=== PATIENT | female | born 1950 | race Caucasian/White ===

== ENCOUNTER 2018-10-28 21:56 | Observation (INO) | payer SELFPAY ==
[2018-10-28 22:01] VITALS: BMI 27.1
--- NOTE | 2018-10-28 22:21 | PDOC ---
History of Present Illness - General Chief Complaint: Pain, Acute Stated Complaint: R/SIDE NUMBNESS TO FACE/NECK/SHOULDER Time Seen by Provider: 10/28/18 22:11 - History of Present Illness Initial Comments: 10/28/18 22:17 68 y/o F with PMH of HTN presents for evaluation of R sided neck pain and arm pain x 1 week and 1 day of facil numbness and subjective "drooping" x1 day which started today at 2:00 pm Past History - Past Medical History Allergies/Adverse Reactions: Allergies Allergy/AdvReac Type Severity Reaction Status Date / Time No Known Allergies Allergy Verified 10/28/18 22:00 COPD: No HTN: Yes Thyroid Disease: No - Suicide/Smoking/Psychosocial Hx Smoking History: Never smoked Hx Alcohol Use: No Substance Use Type: None Review of Systems - Review of Systems Musculoskeletal: Yes: Neck Pain Neurological: Yes: Tingling, Weakness. No: Headache, Pre-Existing Deficit, Unsteady Gait, Ataxia, Dizziness *Physical Exam - Vital Signs Last Vital Signs Temp Pulse Resp BP Pulse Ox 97.6 F 61 18 154/85 100 10/28/18 21:58 10/28/18 21:58 10/28/18 21:58 10/28/18 21:58 10/28/18 21:58 - Physical Exam General Appearance: Yes: Nourished, Appropriately Dressed. No: Apparent Distress HEENT: positive: EOMI, Normal ENT Inspection, Normal Voice, Symmetrical, TMs Normal, Pharynx Normal. negative: Tonsillar Exudate Neck: positive: Supple Respiratory/Chest: positive: Lungs Clear, Normal Breath Sounds. negative: Respiratory Distress, Rales, Rhonchi, Stridor, Wheezing Cardiovascular: positive: Regular Rate, S1, S2. negative: Murmur Musculoskeletal: positive: Normal Inspection Extremity: positive: Normal Inspection, Normal Range of Motion Integumentary: positive: Normal Color, Dry, Warm Neurologic: positive: cutter and presser II-XII NML intact, Fully Oriented, Alert, Motor Strength 5/5. negative: Sensory Deficit ED Treatment Course - RADIOLOGY Radiology Studies Ordered: Category Date Time Status HEAD CT WITHOUT CONTRAST [CT] Stat CT Scan 10/28/18 22:17 Ordered Medical Decision Making - Medical Decision Making 10/28/18 22:20 68 y/o pt with HTN and neurologic symptoms I will transfer to main ER *DC/Admit/Observation/Transfer Diagnosis at time of Disposition: Numbness and tingling of right face - Referrals Referrals: ON STAFF,NOT [Primary Care Provider] - - Patient Instructions - Post Discharge Activity
[2018-10-28 22:47] LABS: EOS % 1.8 % (0-4.5); HEMATOCRIT 36.8 % (32.4-45.2); HEMOGLOBIN 12.2 GM/dL (10.7-15.3); LYMPH % 41.1 % (8-40); MCH 30.5 pg (25.7-33.7); MCHC 33.1 g/dl (32.0-36.0); MEAN CELL VOLUME 91.9 fl (80-96); MONO % 6.2 % (3.8-10.2); NEUT % 49.9 % (42.8-82.8); PLATELET COUNT 283 K/MM3 (134-434); RDW 14.6 % (11.6-15.6); WHITE BLOOD COUNT 7.7 K/mm3 (4.0-10.0)
[2018-10-28 23:14] LABS: ALBUMIN 4.3 g/dl (3.4-5.0); BILIRUBIN,TOTAL 0.5 mg/dL (0.2-1); BLOOD UREA NITROGEN 19.1 mg/dL (7-18); CALCIUM 10.2 mg/dL (8.5-10.1); CREATININE 0.9 mg/dL (0.55-1.3); POTASSIUM 4.6 mmol/L (3.5-5.1); TOT PROT 7.1 g/dl (6.4-8.2)
--- NOTE | 2018-10-28 23:33 | PDOC ---
History of Present Illness - General Chief Complaint: Pain, Acute Stated Complaint: R/SIDE NUMBNESS TO FACE/NECK/SHOULDER Time Seen by Provider: 10/28/18 22:11 History Source: Patient, Family (daughter) - History of Present Illness Initial Comments: 10/28/18 23:27 68 y/o/f here for right shoulder/arm/neck pain x1 week and tingling and numbness of the right side of her face that started at 2pm today. Patient states she has had pain in her right shoulder and neck for the last week. Occasionally she has shooting pain down her arm. She denies any numbness or tingling in her arm. She states the pain is a 9/10 currently. She took aleve yesterday with temporary improvement in pain. Today at 2pm she started to feel like she had tingling and numbness on the right side of her face and felt like the right side of her face has been drooping. She no longer has numbness on her face but still feels that the right side of her face is drooping. Patient also complains of a sore throat and dry cough x3 days. She denies chest pain, SOB, headache, dizziness, fever, abd pain, or other symptoms. PMHx: HTN SHx: breast papilloma removal from right breast Social: denies alcohol and tobacco use PCP: Dr. Dia Past History - Past Medical History Allergies/Adverse Reactions: Allergies Allergy/AdvReac Type Severity Reaction Status Date / Time No Known Allergies Allergy Verified 10/28/18 22:00 Home Medications: Ambulatory Orders Carvedilol 0 mg PO BID 10/28/18 Hydrochlorothiazide [Hctz -] 0 mg PO DAILY 10/28/18 Losartan Potassium 0 mg PO DAILY 10/28/18 COPD: No HTN: Yes Thyroid Disease: No - Suicide/Smoking/Psychosocial Hx Smoking History: Never smoked Hx Alcohol Use: No Substance Use Type: None Review of Systems - Review of Systems Able to Perform ROS?: Yes Is the patient limited Kyrgyz proficient: Yes Constitutional: No: Chills, Fever, Weakness HEENTM: No: Nose Congestion Respiratory: Yes: Cough. No: Shortness of Breath Cardiac (ROS): No: Chest Pain, Lightheadedness ABD/GI: No: Diarrhea, Nausea, Vomiting Musculoskeletal: Yes: Joint Pain (right shoulder) Integumentary: No: Rash Neurological: Yes: Numbness, Tingling. No: Headache Endocrine: No: Excessive Sweating *Physical Exam - Vital Signs Last Vital Signs Temp Pulse Resp BP Pulse Ox 97.6 F 61 18 154/85 100 10/28/18 21:58 10/28/18 21:58 10/28/18 21:58 10/28/18 21:58 10/28/18 21:58 - Physical Exam General Appearance: Yes: Nourished HEENT: positive: EOMI, SAMANTHA, Normal Voice, Symmetrical Neck: positive: Trachea midline, Supple Respiratory/Chest: positive: Lungs Clear, Normal Breath Sounds. negative: Accessory Muscle Use Cardiovascular: positive: Regular Rhythm, Regular Rate, S1, S2 Gastrointestinal/Abdominal: positive: Normal Bowel Sounds, Soft Musculoskeletal: positive: Other (tenderness to palpation over right acromial process. Full passive ROM of right arm and shoulder. ) Extremity: positive: Normal Capillary Refill. negative: Coldness, Swelling Integumentary: positive: Normal Color Neurologic: positive: Fully Oriented, Alert, Normal Response, Motor Strength 5/5 , Facial Droop (right sided facial droop, patient unable to fully raise right eyebrow on exam ), Finger to Nose, Other (no sensory deficits). negative: Confused ED Treatment Course - LABORATORY CBC & Chemistry Diagram: 10/28/18 22:38 10/28/18 22:38 - ADDITIONAL ORDERS Additional order review: Laboratory Results 10/28/18 10/28/18 22:38 22:38 Sodium 140 Potassium 4.6 Chloride 107 Carbon Dioxide 30 Anion Gap 3 L BUN 19.1 H Creatinine 0.9 Est GFR (CKD-EPI)AfAm 75.61 Est GFR (CKD-EPI)NonAf 65.24 Random Glucose 92 Calcium 10.2 H Total Bilirubin 0.5 AST 34 ALT 24 Alkaline Phosphatase 118 H Creatine Kinase 95 Troponin I < 0.02 Total Protein 7.1 Albumin 4.3 10/28/18 22:38 RBC 4.00 MCV 91.9 MCHC 33.1 RDW 14.6 MPV 9.0 Neutrophils % 49.9 Lymphocytes % 41.1 H Monocytes % 6.2 Eosinophils % 1.8 Basophils % 1.0 - RADIOLOGY Radiology Studies Ordered: Category Date Time Status CHEST PA & LAT [RAD] Stat Radiology 10/28/18 23:19 Ordered Medical Decision Making - Medical Decision Making 10/28/18 23:40 -68 y/o/f here for right shoulder/arm/neck pain x1 week and tingling and numbness of the right side of her face that started at 2pm today. -Patient states her facial numbness and droop have improved. -On exam patient has normal sensation, 5/5 strength upper and lower extremities. Normal Cranial never 2-4, 6-12. Patient unable to fully raise right eyebrow. -CBC, CMP grossly normal. -CT head negative for acute pathology. -Pending EKG and CXR. -Will likely admit patient for TIA/Stroke workup 10/28/18 23:42 -EKG reviewed - sinus bradycardia at 57bpm. no acute ischemic changes. 10/29/18 01:08 -Patient admitted under Dr. Brown to telemetry. *DC/Admit/Observation/Transfer Diagnosis at time of Disposition: Numbness and tingling of right face - Discharge Dispostion Condition at time of disposition: Stable - Referrals Referrals: ON STAFF,NOT [Primary Care Provider] - - Patient Instructions - Post Discharge Activity
--- NOTE | 2018-10-29 01:22 | PDOC ---
Attending Attestation - Resident Resident Name: CristinasaydaRuslan dunn S - ED Attending Attestation I have performed the following: I have examined & evaluated the patient, The case was reviewed & discussed with the resident, I agree w/resident's findings & plan - HPI HPI: 10/29/18 01:20 see resident hpi - Physicial Exam PE: 10/29/18 01:20 agree with resident exam - Medical Decision Making 10/29/18 01:21 68-year-old female with right neck and upper back pain now with right-sided facial numbness and tingling CT scan of the brain shows no acute abnormality Due to patient's age she will be admitted to medical service for further evaluation
[2018-10-29] MEDS ORDERED: ASPIRIN 81 MG CHEWABLE TABLETS PO ONE (02:16)
[2018-10-29] MEDS ORDERED: ASPIRIN 81 MG CHEWABLE TABLETS ONE (02:27)
--- NOTE | 2018-10-29 02:54 | HP ---
CHIEF COMPLAINT: R sided arm pain and R facial numbness and droop PCP: Dr. Dia HISTORY OF PRESENT ILLNESS: Ratna Benitez is a 68 year old female with a past medical history of hypertension who presents with a 1 week history of R sided arm pain and 1 day history of facial numbness and facial droop. The patient stated that the R arm pain feels very sharp and comes on suddenly if she moves her arm, shoulder or neck. She feels the pain is worse when she flexes her neck. She denies any weakness associated with the pain or numbness. The facial numbness and droop started around 2PM on 10/29. Her son who lives with her stated to the daughter who was at bedside that he thought the patient's voice sounded unlike her usual voice and thought she was slurring her words. The patient was unsure if she was slurring her words but denied dysphagia, facial weakness. Stated that she also had brief episodes of blurriness in her vision. No darkening of the vision, syncope, dizziness, focal weakness of the extremities, numbness or tingling of the extremities, falls. Also denies chest pain, shortness of breath, nausea, vomiting, abdominal pain, dysuria, frequency, urgency, hesitancy. Denies recent trauma, recent illness, falls, sick contacts. At the time of interview, the patient stated she felt better and noted that the facial numbness had resolved but felt that she had some residual facial droop. Stated she had a sore throat for several days with a dry cough. No phlegm, no fever, chills, or shortness of breath. ER course was notable for: (1) Head CT with no acute pathology, CXR with no acute pathology (2) Given aspirin 162 Recent Travel: denies PAST MEDICAL HISTORY: as above PAST SURGICAL HISTORY: hip and knee surgery Social History: Smoking: denies Alcohol: denies Drugs: denies Lives with son. Family History: Mother- stroke Allergies No Known Allergies Allergy (Verified 10/28/18 22:00) HOME MEDICATIONS: Home Medications Medication Instructions Recorded Carvedilol 0 mg PO BID 10/28/18 Hydrochlorothiazide [Hctz -] 0 mg PO DAILY 10/28/18 Losartan Potassium 0 mg PO DAILY 10/28/18 REVIEW OF SYSTEMS CONSTITUTIONAL: Absent: fever, chills, diaphoresis, generalized weakness, malaise, loss of appetite HEENT: sore throat, blurry vision (resolved) Absent: rhinorrhea, nasal congestion, throat swelling, difficulty swallowing, eye pain, CARDIOVASCULAR: Absent: chest pain, syncope, palpitations, irregular heart rate, lightheadedness , peripheral edema RESPIRATORY: dry cough Absent: shortness of breath, dyspnea with exertion, orthopnea, wheezing, GASTROINTESTINAL: Absent: abdominal pain, abdominal distension, nausea, vomiting, diarrhea, constipation, GENITOURINARY: Absent: dysuria, frequency, urgency, hesitancy, hematuria, flank pain MUSCULOSKELETAL: neck pain, R arm pain Absent: myalgia, arthralgia, joint swelling, back pain SKIN: Absent: rash, itching, pallor HEMATOLOGIC/IMMUNOLOGIC: Absent: easy bleeding, easy bruising, lymphadenopathy, frequent infections ENDOCRINE: Absent: unexplained weight gain, unexplained weight loss, heat intolerance, cold intolerance NEUROLOGIC: R facial numbess, R facial droop Absent: headache, dizziness, unsteady gait, seizure, mental status changes, bladder or bowel incontinence PSYCHIATRIC: Absent: anxiety, depression, suicidal or homicidal ideation, hallucinations. PHYSICAL EXAMINATION Vital Signs - 24 hr 10/28/18 21:58 Temperature 97.6 F Pulse Rate 61 Respiratory 18 Rate Blood Pressure 154/85 O2 Sat by Pulse 100 Oximetry (%) GENERAL: Awake, alert, and fully oriented, in no acute distress. HEAD: Normal with no signs of trauma. EYES: Pupils equal, round and reactive to light, extraocular movements intact, sclera anicteric, conjunctiva clear. EARS, NOSE, THROAT: Oropharynx clear without exudates. Moist mucous membranes. NECK: Supple without lymphadenopathy, JVD. Pain with passive flexion of the neck and upon palpation of the neck between C4-C6 region. LUNGS: Breath sounds equal, clear to auscultation bilaterally. No wheezes, and no crackles. No accessory muscle use. HEART: Regular rate and rhythm, normal S1 and S2 without murmur, rub. ABDOMEN: Soft, nontender, not distended, normoactive bowel sounds, no guarding, no rebound, no masses. MUSCULOSKELETAL: Normal range of motion at all joints. No bony deformities or tenderness. No CVA tenderness. UPPER EXTREMITIES: 2+ pulses, warm, well-perfused. No cyanosis. No clubbing. No peripheral edema. LOWER EXTREMITIES: 2+ pulses, warm, well-perfused. No calf tenderness. No peripheral edema. NEUROLOGICAL: Mild facial droop noted with smile asymmetry. R eyebrow lower than L but adequately raises. Adequate eye closing strength. Otherwise CN II- XII intact. 5/5 muscle strength bilaterally upper and lower extremities. Sensation intact to gross touch throughout face, upper and lower extremities. Finger to nose intact, heel to sharp intact. No extinction. NIH 1 (minor facial paralysis) PSYCHIATRIC: Cooperative. Good eye contact. Appropriate mood and affect. SKIN: Warm, dry, normal turgor, no rashes or lesions noted, normal capillary refill. Laboratory Results - last 24 hr 10/28/18 10/28/18 10/28/18 22:38 22:38 22:38 WBC 7.7 RBC 4.00 Hgb 12.2 Hct 36.8 MCV 91.9 MCH 30.5 MCHC 33.1 RDW 14.6 Plt Count 283 MPV 9.0 Absolute Neuts (auto) 3.9 Neutrophils % 49.9 Lymphocytes % 41.1 H Monocytes % 6.2 Eosinophils % 1.8 Basophils % 1.0 Nucleated RBC % 0 Sodium 140 Potassium 4.6 Chloride 107 Carbon Dioxide 30 Anion Gap 3 L BUN 19.1 H Creatinine 0.9 Est GFR (CKD-EPI)AfAm 75.61 Est GFR (CKD-EPI)NonAf 65.24 Random Glucose 92 Calcium 10.2 H Total Bilirubin 0.5 AST 34 ALT 24 Alkaline Phosphatase 118 H Creatine Kinase 95 Troponin I < 0.02 Total Protein 7.1 Albumin 4.3 EKG--> Sinus bradycardia, q waves and T wave inversions in I and aVL, positive waves in aVR, no ST segment changes, questionable for lead reversal, will repeat EKG ASSESSMENT/PLAN: Ratna Benitez is a 68 year old female with a past medical history of hypertension who is admitted for TIA/CVA workup after presenting with R facial droop and R facial numbness R facial numbness/droop R sided arm pain HTN R facial numbness/droop - cannot rule out TIA/CVA as patient with risk factors of HTN and family history and acute onset focal symptoms admitted for rule out - has some upper facial assymetry which family states is not usual, can consider Thurston's palsy, unknown cause - CT as above - given aspirin 162 in ED - neurology consulted - echo - carotids - lipid panel - A1C - repeat labs - consider statin dose elevation if higher suspicion for CVA - MRI/MRA can be considered however patient noted she had metal implants in her legs, may be deferred, or CTA can be performed - fall precautions - cardiac monitoring - physical therapy - speech and swallow consult - Lyme panel to evaluate for questionable Thurston's palsy R sided arm pain - localized pain from neck down isolated to the C5/C6 dermatomes, can consider disc herniations - MRI C-spine would be of utility, however patient stated she has metal implant in leg - monitor pain and treat as necessary - physical therapy requested - C- spine x-ray to evaluate for bony disease HTN - continue home meds - medications obtained through identification of pills that patient had with them, needs medication reconciliation through pharmacy FEN - no standing fluids - continue to monitor electrolytes and replete as necessary - sodium controlled diet Prophylaxis - heparin 5000 units subq tid Code - full code LAYNE PADGETT DO - PGY-1 Visit type - Emergency Visit Emergency Visit: Yes ED Registration Date: 10/29/18 Care time: The patient presented to the Emergency Department on the above date and was hospitalized for further evaluation of their emergent condition. - New Patient This patient is new to me today: Yes Date on this admission: 10/29/18 - Critical Care Critical Care patient: No
[2018-10-29] MEDS ORDERED: CARVEDILOL 12.5 MG TABLET (FP) PO ONE (02:58)
[2018-10-29] MEDS ORDERED: CARVEDILOL 12.5 MG TABLET (FP) ONE (03:29)
[2018-10-29] MEDS ORDERED: HEPARIN NA (PORCINE) 5,000 UNITS/ML 1ML VIAL ONE ×2 (06:17→14:56)
[2018-10-29] MEDS: HEPARIN NA (PORCINE) 5,000 UNITS/ML 1ML VIAL SQ SCH ×2 (06:30→15:10)
--- NOTE | 2018-10-29 07:06 | PN ---
Teaching Attending Note Name of Resident: Heriberto Neves ATTENDING PHYSICIAN STATEMENT I saw and evaluated the patient. I reviewed the resident's note and discussed the case with the resident. I agree with the resident's findings and plan as documented. SUBJECTIVE: 68 year old female with htn c/o right facial numbness which started in evening on 10/28. Started spontaneously, no headaches, vertigo, nausea, vision or hearing changes. No problems with gait, speech, or swallowing. also mentioned one week of posterior neck and right upper extremity radiation. OBJECTIVE: Last Vital Signs Temp Pulse Resp BP Pulse Ox 97.6 F 57 L 18 143/79 100 10/28/18 23:20 10/28/18 23:20 10/28/18 23:20 10/28/18 23:20 10/28/18 23:20 General- nad heent - possible slight right lower facial droop neck supple cv-s1+s2+rrr neuro - CN 3-12 wnl, limbs motor intact Abnormal Lab Results 10/28/18 10/28/18 22:38 22:38 Lymphocytes % 41.1 H Anion Gap 3 L BUN 19.1 H Calcium 10.2 H Alkaline Phosphatase 118 H Imaging reviewed - head CT wnl ASSESSMENT AND PLAN: #TIA/ r/o CVA vs possible [place] Palsy. Do not strongly suspect CVA. Right upper extremity pain might be from cervical radiculopathy, possible cervical diskopathy. -tele/obs -npo -neuro consult -statin -asa -neck lateral x-ray -bed rest -neuro checks q4hrs -echo -carotid duplex -a1c -lipid panel -consider MRI -heparin sc
[2018-10-29 08:02] LABS: BASO % 0.7 % (0-2.0); EOS % 1.7 % (0-4.5); HEMATOCRIT 37.3 % (32.4-45.2); HEMOGLOBIN 12.5 GM/dL (10.7-15.3); MCH 30.7 pg (25.7-33.7); MCHC 33.3 g/dl (32.0-36.0); MEAN CELL VOLUME 91.9 fl (80-96); MEAN PLT VOLUME 8.3 fl (7.5-11.1); MONO % 5.8 % (3.8-10.2); NEUT % 52.8 % (42.8-82.8); PLATELET COUNT 249 K/MM3 (134-434); RBC 4.06 M/mm3 (3.60-5.2); RDW 14.6 % (11.6-15.6)
[2018-10-29 08:34] LABS: ALBUMIN 4.2 g/dl (3.4-5.0); BILIRUBIN,TOTAL 0.6 mg/dL (0.2-1); BLOOD UREA NITROGEN 17.4 mg/dL (7-18); CALCIUM 10.1 mg/dL (8.5-10.1); CREATININE 0.7 mg/dL (0.55-1.3); MAGNESIUM 2.3 mg/dL (1.8-2.4); POTASSIUM 3.8 mmol/L (3.5-5.1)
--- NOTE | 2018-10-29 08:49 | CONSULT ---
Consult - text type - Consultation Consultation Note: Neurology CHIEF COMPLAINT: R sided arm pain and R facial numbness and droop PCP: Dr. Dia HISTORY OF PRESENT ILLNESS: Ratna Benitez is a 68 year old female with a past medical history of hypertension who presents with a 1 week history of R sided arm pain and 1 day history of facial numbness and facial droop. The patient stated that the R arm pain feels very sharp and comes on suddenly if she moves her arm, shoulder or neck. She feels the pain is worse when she flexes her neck. She denies any weakness associated with the pain or numbness. The facial numbness and droop started around 2PM on 10/29. Her son who lives with her stated to the daughter who was at bedside that he thought the patient's voice sounded unlike her usual voice and thought she was slurring her words. The patient was unsure if she was slurring her words but denied dysphagia, facial weakness. Stated that she also had brief episodes of blurriness in her vision. No darkening of the vision, syncope, dizziness, focal weakness of the extremities, numbness or tingling of the extremities, falls. Also denies chest pain, shortness of breath, nausea, vomiting, abdominal pain, dysuria, frequency, urgency, hesitancy. Denies recent trauma, recent illness, falls, sick contacts. At the time of interview, the patient stated she felt better and noted that the facial numbness had resolved but felt that she had some residual facial droop. Stated she had a sore throat for several days with a dry cough. No phlegm, no fever, chills, or shortness of breath. Head CT completed, no acute pathology. Carotid Doppler ordered. discussed with ER overnight, recommended MRI brain, however, I informed that patient has met all and therefore will not be able to have MRI. We'll order CT head to be repeated. patient remains in the ER with her daughter at bedside, does report some improvement but with continued facial droop. 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 Cannot rule out TIA. Patient does report taking daily aspirin along with statin. Recent Travel: denies PAST MEDICAL HISTORY: as above PAST SURGICAL HISTORY: hip and knee surgery Social History: Smoking: denies Alcohol: denies Drugs: denies Lives with son. Family History: Mother- stroke Allergies No Known Allergies Allergy (Verified 10/28/18 22:00) HOME MEDICATIONS: Home Medications Medication Instructions Recorded Carvedilol 0 mg PO BID 10/28/18 Hydrochlorothiazide [Hctz -] 0 mg PO DAILY 10/28/18 Losartan Potassium 0 mg PO DAILY 10/28/18 REVIEW OF SYSTEMS CONSTITUTIONAL: Absent: fever, chills, diaphoresis, generalized weakness, malaise, loss of appetite HEENT: sore throat, blurry vision (resolved) Absent: rhinorrhea, nasal congestion, throat swelling, difficulty swallowing, eye pain, CARDIOVASCULAR: Absent: chest pain, syncope, palpitations, irregular heart rate, lightheadedness , peripheral edema RESPIRATORY: dry cough Absent: shortness of breath, dyspnea with exertion, orthopnea, wheezing, GASTROINTESTINAL: Absent: abdominal pain, abdominal distension, nausea, vomiting, diarrhea, constipation, GENITOURINARY: Absent: dysuria, frequency, urgency, hesitancy, hematuria, flank pain MUSCULOSKELETAL: neck pain, R arm pain Absent: myalgia, arthralgia, joint swelling, back pain SKIN: Absent: rash, itching, pallor HEMATOLOGIC/IMMUNOLOGIC: Absent: easy bleeding, easy bruising, lymphadenopathy, frequent infections ENDOCRINE: Absent: unexplained weight gain, unexplained weight loss, heat intolerance, cold intolerance NEUROLOGIC: R facial numbess, R facial droop Absent: headache, dizziness, unsteady gait, seizure, mental status changes, bladder or bowel incontinence PSYCHIATRIC: Absent: anxiety, depression, suicidal or homicidal ideation, hallucinations. PHYSICAL EXAMINATION Vital Signs Period Temp Pulse Resp BP Sys/Rodriguez Pulse Ox Last 24 Hr 97.6 F-97.6 F 57-61 18-18 143-154/79-85 100-100 GENERAL: Awake, alert, and fully oriented, in no acute distress. HEAD: Normal with no signs of trauma. EYES: Pupils equal, round and reactive to light, extraocular movements intact, sclera anicteric, conjunctiva clear. EARS, NOSE, THROAT: Oropharynx clear without exudates. Moist mucous membranes. NECK: Supple without lymphadenopathy, JVD. Pain with passive flexion of the neck and upon palpation of the neck between C4-C6 region. LUNGS: Breath sounds equal, clear to auscultation bilaterally. No wheezes, and no crackles. No accessory muscle use. HEART: Regular rate and rhythm, normal S1 and S2 without murmur, rub. ABDOMEN: Soft, nontender, not distended, normoactive bowel sounds, no guarding, no rebound, no masses. MUSCULOSKELETAL: Normal range of motion at all joints. No bony deformities or tenderness. No CVA tenderness. UPPER EXTREMITIES: 2+ pulses, warm, well-perfused. No cyanosis. No clubbing. No peripheral edema. LOWER EXTREMITIES: 2+ pulses, warm, well-perfused. No calf tenderness. No peripheral edema. NEUROLOGICAL: Mild facial droop noted with smile asymmetry. R eyebrow lower than L but adequately raises. Adequate eye closing strength. Otherwise CN II- XII intact. 5/5 muscle strength bilaterally upper and lower extremities. Sensation intact to gross touch throughout face, upper and lower extremities. Finger to nose intact, heel to sharp intact. No extinction. NIH 1 (minor facial paralysis) PSYCHIATRIC: Cooperative. Good eye contact. Appropriate mood and affect. SKIN: Warm, dry, normal turgor, no rashes or lesions noted, normal capillary refill. CBCD WBC 6.0 K/mm3 (4.0-10.0) 10/29/18 07:08 RBC 4.06 M/mm3 (3.60-5.2) 10/29/18 07:08 Hgb 12.5 GM/dL (10.7-15.3) 10/29/18 07:08 Hct 37.3 % (32.4-45.2) 10/29/18 07:08 MCV 91.9 fl (80-96) 10/29/18 07:08 MCHC 33.3 g/dl (32.0-36.0) 10/29/18 07:08 RDW 14.6 % (11.6-15.6) 10/29/18 07:08 Plt Count 249 K/MM3 (134-434) 10/29/18 07:08 MPV 8.3 fl (7.5-11.1) 10/29/18 07:08 CMP Sodium 142 mmol/L (136-145) 10/29/18 07:08 Potassium 3.8 mmol/L (3.5-5.1) 10/29/18 07:08 Chloride 108 mmol/L (98-107) H 10/29/18 07:08 Carbon Dioxide 28 mmol/L (21-32) 10/29/18 07:08 Anion Gap 6 MMOL/L (8-16) L 10/29/18 07:08 BUN 17.4 mg/dL (7-18) 10/29/18 07:08 Creatinine 0.7 mg/dL (0.55-1.3) 10/29/18 07:08 Random Glucose 89 mg/dL (74-106) 10/29/18 07:08 Calcium 10.1 mg/dL (8.5-10.1) 10/29/18 07:08 Total Bilirubin 0.6 mg/dL (0.2-1) 10/29/18 07:08 AST 18 U/L (15-37) 10/29/18 07:08 ALT 22 U/L (13-61) 10/29/18 07:08 Alkaline Phosphatase 111 U/L (45-117) 10/29/18 07:08 Total Protein 7.0 g/dl (6.4-8.2) 10/29/18 07:08 Albumin 4.2 g/dl (3.4-5.0) 10/29/18 07:08 CARDIAC ENZYMES Creatine Kinase 95 U/L (26-192) 10/28/18 22:38 Troponin I < 0.02 ng/ml (0.00-0.05) 10/28/18 22:38 EKG--> Sinus bradycardia, q waves and T wave inversions in I and aVL, positive waves in aVR, no ST segment changes, questionable for lead reversal, will repeat EKG ASSESSMENT/PLAN: Ratna Benitez is a 68 year old female with a past medical history of hypertension who presents with a 1 week history of R sided arm pain and 1 day history of facial numbness and facial droop. The patient stated that the R arm pain feels very sharp and comes on suddenly if she moves her arm, shoulder or neck. She feels the pain is worse when she flexes her neck. She denies any weakness associated with the pain or numbness. The facial numbness and droop started around 2PM on 10/29. Her son who lives with her stated to the daughter who was at bedside that he thought the patient's voice sounded unlike her usual voice and thought she was slurring her words. The patient was unsure if she was slurring her words but denied dysphagia, facial weakness. Stated that she also had brief episodes of blurriness in her vision. discussed with ER overnight, recommended MRI brain, however, I informed that patient has met all and therefore will not be able to have MRI. We'll order CT head to be repeated. patient remains in the ER with her daughter at bedside, does report some improvement but with continued facial droop. 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 Cannot rule out TIA. Patient does report taking daily aspirin along with statin. Follow follow-up carotid Dopplers, maintain blood pressure less than 160/90, continue antihypertensive medications, continue statin and aspirin 81 mg daily.
[2018-10-29] MEDS ORDERED: ASPIRIN COATED 81 MG TABLET.EC PO SCH (10:00)
[2018-10-29] MEDS ORDERED: LOSARTAN POTASSIUM 50 MG TABLET (FP) PO SCH (10:00)
[2018-10-29] MEDS ORDERED: CARVEDILOL 12.5 MG TABLET (FP) PO SCH (10:00)
[2018-10-29] MEDS ORDERED: HYDROCHLOROTHIAZIDE 12.5 MG CAPSULE (FP) PO SCH (10:00)
--- NOTE | 2018-10-29 10:37 | EKG ---
Test Reason : Blood Pressure : / mmHG Vent. Rate : 052 BPM Atrial Rate : 052 BPM P-R Int : 176 ms QRS Dur : 074 ms QT Int : 424 ms P-R-T Axes : 042 020 027 degrees QTc Int : 394 ms SINUS BRADYCARDIA OTHERWISE NORMAL ECG WHEN COMPARED WITH ECG OF 28-OCT-2018 23:39, QRS AXIS SHIFTED LEFT CRITERIA FOR LATERAL INFARCT ARE NO LONGER PRESENT CRITERIA FOR INFERIOR INFARCT ARE NO LONGER PRESENT NON-SPECIFIC CHANGE IN ST SEGMENT IN LATERAL LEADS T WAVE INVERSION NO LONGER EVIDENT IN LATERAL LEADS Confirmed by GARTH WYATT MD ([id number]) on 10/29/2018 10:37:32 AM Referred By: Confirmed By:GARTH WYATT MD
--- NOTE | 2018-10-29 10:38 | EKG ---
Test Reason : Blood Pressure : / mmHG Vent. Rate : 057 BPM Atrial Rate : 057 BPM P-R Int : 154 ms QRS Dur : 082 ms QT Int : 408 ms P-R-T Axes : 000 136 149 degrees QTc Int : 397 ms LIMB LEAD REVERSAL SINUS BRADYCARDIA LATERAL INFARCT , AGE UNDETERMINED INFERIOR INFARCT , AGE UNDETERMINED ABNORMAL ECG Confirmed by YOSELIN WALKER, GARTH ([id number]) on 10/29/2018 10:38:17 AM Referred By: Confirmed By:GARTH WYATT MD
--- NOTE | 2018-10-29 12:31 | ECHO ---
Name: NATY NICHOLS Exam:Adult Echocardiogram Study Date: 10/29/2018 09:24 AM Age: 68 yrs Reason For Study: EVALUATE HEART FUNCTION CVA/TIA Height: 62 in Weight: 148 lb BSA: 1.7 m2 MMode/2D Measurements & Calculations IVSd: 0.89 cm Ao root diam: 2.6 cm LVIDd: 4.3 cm LA dimension: 3.2 cm LVIDs: 3.0 cm LVPWd: 0.76 cm EDV(Teich): 82.3 ml LVOT diam: 1.9 cm ESV(Teich): 33.7 ml Doppler Measurements & Calculations MV E max pito: 67.1 cm/sec Ao V2 max: 157.5 cm/sec MV A max pito: 27.1 cm/sec Ao max P.9 mmHg MV E/A: 2.5 Ao V2 mean: 113.4 cm/sec MV dec time: 0.21 sec Ao mean P.8 mmHg Ao V2 VTI: 39.1 cm AI P1/2t: 878.0 msec PEDRO PABLO(V,D): 2.2 cm2 AI max pito: 250.3 cm/sec LV V1 max P.3 mmHg AI max P.9 mmHg LV V1 max: 115.5 cm/sec AI dec slope: 83.5 cm/sec2 MR max pito: 406.6 cm/sec TR max pito: 238.9 cm/sec MR max P.1 mmHg TR max P.0 mmHg Med Peak E' Pito: 6.5 cm/sec Med E/e': 10.4 Lat Peak E' Pito: 7.6 cm/sec Lat E/e': 8.8 Procedure A complete two-dimensional transthoracic echocardiogram was performed (2D, M-mode, Doppler and color flow Doppler). Left Ventricle The left ventricular size, thickness and function are normal. The left ventricular ejection fraction is normal. Ejection Fraction = 60-65%. The left ventricular wall motion is normal. Right Ventricle The right ventricle is normal in size and function. Atria Normal left and right atrial size and function. Mitral Valve There is no mitral regurgitation noted. Tricuspid Valve There is mild to moderate tricuspid regurgitation. Right ventricular systolic pressure is normal. Aortic Valve The aortic valve is trileaflet. No hemodynamically significant valvular aortic stenosis. Trace aortic regurgitation. Pulmonic Valve There is no pulmonic valvular regurgitation. Great Vessels The aortic root is normal size. Pericardium/Pleura There is no pericardial effusion. Interpretation Summary The left ventricular size, thickness and function are normal The right ventricle is normal in size and function. There is mild to moderate tricuspid regurgitation. Trace aortic regurgitation. MD Lawrence Loredo 10/29/2018 12:31 PM
--- NOTE | 2018-10-29 14:36 | CONSULT ---
Admitting History and Physical - Primary Care Physician PCP: Temo Troncoso - Admission History of Present Illness: Ratna Benitez is a 68 year old female with a past medical history of hypertension who is admitted for TIA/CVA workup after presenting with R facial droop and R facial numbness. Pt reported neck and shoulder pain week before onset of facial symptoms. Selected Entries 10/28/18 10/28/18 10/29/18 21:58 23:20 10:23 Temperature 97.6 F 97.6 F 97.5 F L Blood Pressure 154/85 Blood Pressure 143/79 138/72 [Left Arm] Laboratory Tests 10/28/18 10/29/18 22:38 07:08 WBC 7.7 6.0 History Source: Patient, Friend Limitations to Obtaining History: No Limitations - Smoking History Smoking history: Never smoked - Alcohol/Substance Use Hx Alcohol Use: No History - Admission Reason For Visit: TRANSIENT ISCHEMIC ATTACK - Diagnostics X-ray: Report Reviewed CT Scan: Report Reviewed - General Mental Status: Alert and Oriented, Awake and Alert, Able to Follow Commands Attention: Intact Ability to Follow Directions: Excellent Head/Neck Control: WFL - Hearing Hearing: Normal Speech Evaluation - Communication Primary Language: S[place]TH [place]OREAN Secondary Language: YI Communication: Yes: Within Normal Limits Oral Expression Ability: Yes: No Impairment - Speech Production Able to Make Needs Known: Yes: WNL Intelligibility: Yes: WNL - Speech Characteristics Voice Loudness: Normal Voice Phonatory-based Quality: Yes: Normal Speech Pattern: Normal Speech Clarity: < 100% Nasal Resonance: Normal Articulation: Yes: Precise Rate of Speech: Intact - Language/Auditory Comprehension Follows: Yes: 2 Stage Simple Commands Observation: Able to respond to yes/no queries: Yes, Yes/No Confusion: No, Comprehends Conversational Speech: Yes - Language/Verbal Expression Able to Respond to Simple Queries: Yes: WNL Able to Communicate Wants and Needs: Yes: WNL Functional Communication Status: Yes: WNL - Memory/Perception half-way Memory: Yes: WNL Short Term Memory: Yes: WNL - Swallow Evaluation/Bedside Assessment Current Nutritional Intake: Regular, Thin Liquids Oral Secretions: Yes: WFL Dentition: Yes: Adequate Facial Symmetry at Rest: Symmetrical Facial Symmetry on Retraction: Symmetrical Sensation: Normal Against Resistance Opening: Normal Against Resistance Closing: Normal Pucker Lips: Normal Smile: Normal Lingual Movement: Symmetric Lingual Speed of Movement: Normal Lingual Movement Strgth Against Opposition: Normal Lingual Movement Characteristics: Normal Velopharyngeal Movement: Normal Laryngeal Elevation: WFL Laryngeal Movement: Able to Palpate Rate of Intake: WFL Bolus Size: WFL Labial Seal: WFL Chewing: WFL Oral Prep Time: WFL A-P Transit: WFL Timing of Swallow: WFL Coughing/Throat Clear: No Change in Voice: No Recommendations - Speech Evaluation, Impression/Plan Impression: Speech,language,swallowing intact. Right eyebrow slightly lower than left eyebrow. Unable to elevate brows bilaterally. Upon assessment and questioning, pt has h/o Botox injection to forehead a year ago. - Dysphagia Impressions/Plan Swallowing Skills: [facility] Dysphagia Impressions: No Impairment *Silent aspiration: cannot be R/O at bedside - Recommendations Diet Consistency: Regular Medication Administration: Whole with water Liquids: Thin Liquids
[2018-10-29 16:10] VITALS: BP 135/84; PULSE 60; TEMP 98
--- NOTE | 2018-10-29 16:28 | PN ---
Teaching Attending Note Name of Resident: Jason Pang ATTENDING PHYSICIAN STATEMENT I saw and evaluated the patient. I reviewed the resident's note and discussed the case with the resident. I agree with the resident's findings and plan as documented. Seen and examined; discussed with neurology. 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 Recommended course of antivirals and steroids and DC home with close OP followup. Repeat head CT noted to be negative. Echo reviewed; mild to moderate TR noted but no LAE. Neuro exam is benign with only facial features found. Language barrier likely lead to people misinterpreting her pain description. It is pain radiating from the trapezius and levators to the RC muscles with positive beer can test, pain to palpation especially around infraspinatus and subscapularis. She tells me she does repetitive movements at work with her shoulders. She has risks for rotator cuff tendinopathy. Will recommend PRN APAP and close followup with orthopedic sgy. She is able to ambulate >100 feet without issues, passed her nursing and formal swallow evaluation, and is clear for discharge home. As neuro documented limited in ability to procure CT. VS, labs, imaging and all diagnostics reviewed NAD, AAO, resting in bed Described facial findings R-side consistent with Thurston's, reflexes and speech normal, sensorium and motor in all extremities normal. NC AT EOMI PERRLA RRR s1/2 NT ND +BS Normal mood, appropriate behavior Please see today's resident documentation for further discussion Dispo: Home Followup: -PCP3-5 days -Neuro per neurology Activity: As tolerated New Medications: For Thurston's Palsy Outpatient Labs: Can consider B12, RPR, and lyme titers per PCP and neuro. Were not essential to order for inpatient workup. Full Code 33 Minutes Spent in Discharging this patient
[2018-10-29] MEDS ORDERED: ATORVASTATIN CA 10 MG TABLET (FP) PO SCH (22:00)
--- NOTE | 2018-10-30 13:44 | DS ---
Physical Exam: SUBJECTIVE: Patient seen and examined OBJECTIVE: Vital Signs Period Temp Pulse Resp BP Sys/Rodriguez Pulse Ox Last 24 Hr 97.6 F-98 F 60-66 16-18 125-135/77-84 100-100 PHYSICAL EXAM GENERAL: The patient is awake, alert, and fully oriented, in no acute distress. HEAD: Normal with no signs of trauma. EYES: PERRL, extraocular movements intact, sclera anicteric, conjunctiva clear. ENT: Ears normal, nares patent, oropharynx clear without exudates, moist mucous membranes. NECK: Trachea midline, full range of motion, supple. LUNGS: Breath sounds equal, clear to auscultation bilaterally, no wheezes, no crackles, no accessory muscle use. HEART: Regular rate and rhythm, S1, S2 without murmur, rub or gallop. ABDOMEN: Soft, nontender, nondistended, normoactive bowel sounds, no guarding, no rebound, no hepatosplenomegaly, no masses. EXTREMITIES: 2+ pulses, warm, well-perfused, no edema. NEUROLOGICAL: Cranial nerves II through XII grossly intact with the following exception: R eyebrow with diminished elevation. Normal speech, gait not observed. PSYCH: Normal mood, normal affect. SKIN: Warm, dry, normal turgor, no rashes or lesions noted. LABS HOSPITAL COURSE: Date of Admission:10/29/18 Date of Discharge: 10/30/18 Ratna Benitez is a 68 year old female with a past medical history of hypertension who is admitted for TIA/CVA workup after presenting with R facial droop and R facial numbness Pt presented with R facial numbness/droop. The medical team was not able to r/o TIA as patient with risk factors of HTN and family history and acute onset focal symptoms. She had some upper facial assymetry which family states is not usual. Thurston's palsy was considered. CT was negative. Neurology was consulted. Echo, carotids, lipid panel, A1C were all noted. Of note, pt had a hx of Botox injection, which was a possible etiology. The patient had R sided arm pain localized neck down isolated to the C5/C6 dermatomes, can consider disc herniations. MRI C-spine would have been of utility, however patient stated she has metal implant in her leg. C- spine x- ray to evaluate for bony disease was unremarkable. Her HTN was treated with home meds. Minutes to complete discharge: 30 Discharge Summary Reason For Visit: TRANSIENT ISCHEMIC ATTACK Condition: Stable - Instructions Diet, Activity, Other Instructions: You were in the hospital because of a transient ischemic attack. You need to follow up with the following doctors: Dr. Dia, primary care 3-[address] Garrett, neurology 2-3 weeks You need to take the following medications: Simvastatin 20mg daily Losartan 100 mg daily Hctz 12.5mg daily Carvedilol 12.5mg daily Prednisone 50 mg daily for 5 days Valtrex 1gm 3 times daily for 7 days Referrals: Venancio Garrett MD [Staff Physician] - 1 Week Disposition: HOME - Home Medications Comprehensive Discharge Medication List: Ambulatory Orders Carvedilol 12.5 mg PO BID 10/28/18 Hydrochlorothiazide [Hctz -] 12.5 mg PO DAILY 10/28/18 Losartan Potassium 100 mg PO DAILY 10/28/18 Aspirin [ASA -] 81 mg PO DAILY 10/29/18 Calcium Carb/Vitamin D3/Vit K1 [Calcium + D Soft Chewable Tab] 1 each PO DAILY 10/29/18 Diclofenac Sodium 50 mg PO DAILY 10/29/18 Prednisone [Prednisone 50 MG TABLETS] 50 mg PO DAILY #5 tablet 10/29/18 Simvastatin 20 mg PO DAILY 10/29/18 Valacyclovir HCl [Valtrex] 1,000 mg PO DAILY #7 tablet 10/29/18 This patient is new to me today: No Emergency Visit: No Critical Care patient: No - Discharge Referral Referred to [facility] Med P.C.: No ATTENDING PHYSICIAN STATEMENT I saw and evaluated the patient. I reviewed the resident's note and discussed the case with the resident. I agree with the resident's findings and plan as documented. SUBJECTIVE: OBJECTIVE: ASSESSMENT AND PLAN:
== END 2018-10-29 17:58 | disposition home or self-care (01) ==
LOC: JERFT 21:56 → JERBED 10-29 00:43 → INTOOBSV 10-29 00:43 → OBSVTOIN 10-29 00:43 → J4W 10-29 15:38
PROVIDERS: ADMIT Internal Medicine; ATTEND Internal Medicine
PROC: 3E013GC Introduction of Other Therapeutic Substance into Subcutaneous Tissue, Percutaneous Approach (ICD-10-PCS; principal; 2018-10-29)
DX: R20.0 Anesthesia of skin (principal); R20.2 Paresthesia of skin; R29.810 Facial weakness; I10 Essential (primary) hypertension; M79.601 Pain in right arm
CPT/HCPCS: 36415; 70450-TC; 71046-TC-FY; 72040-TC; 80053; 80061; 82550; 83036; 83721; 83735; 84443; 84484; 85025; 86618; 93005; 93010; 93306-TC; 93880-TC; 99285-25; G0378; J1644